=== PATIENT | female | born 1980 | race Hispanic/Latino ===

== ENCOUNTER 2021-04-02 11:21 | Emergency (ER) | payer OTHER, SELFPAY ==
--- NOTE | ~2021-04-02 | XR_ITS ---
EXAMINATION: XR wrist RT min 3V DATE: 04/02/2021 11:44 INDICATION: Right wrist pain. TECHNIQUE: 4 views of right wrist were obtained. COMPARISON: None. FINDINGS: Bone alignment is normal. No fracture. Joint spaces are normal. IMPRESSION: 1. Normal right wrist. Reviewed, dictated and finalized at location B. IMPRESSION: 1. Normal right wrist.
[2021-04-02 11:31] VITALS: BP 141/102; PULSE 84; RESP 16; TEMP 37.2; O2SAT 100
--- NOTE | 2021-04-02 11:34 | ED.GENADULT ---
HPI - General Adult General Chief complaint: Extremity Injury, Upper Stated complaint: right forearm pain Source: patient Mode of arrival: ambulatory Limitations: no limitations History of Present Illness HPI narrative: 40 y/o female. PMH includes: None pertinent has been reported. Presents to [facility] today with acute complaints of RT wrist pain, worsening in the past 1 week. She tells me that she had been putting lids on jars at work, and had hit her wrist on the jar to close the lid a few times prior to manifestation onset. She complains of worsening pain to area, unrelieved with OTC remedies. No additional injury or trauma has been relayed. No loss of upper extremity sensation or control. No open wounds. She is RT hand dominant. She is without additional acute complaints of illness upon exam. Related Data Home Medications Medication Instructions Recorded Confirmed No Home Medications 11/30/19 11/30/19 Allergies Allergy/AdvReac Type Severity Reaction Status Date / Time No Known Allergies Allergy Verified 04/02/21 11:35 Review of Systems Review of Systems: Narrative: CONSTITUTIONAL: Denies fever, chills, sweats. EYES: Denies visual changes, redness, discharge. ENT: Denies rhinorrhea, congestion, sore throat, otalgia. CARDIOVASCULAR: Denies chest pain, palpitations, edema. RESPIRATORY: Denies dyspnea, wheezing, cough GASTROINTESTINAL: Denies abdominal pain, nausea, vomiting, diarrhea. GENITOURINARY: Denies dysuria, hematuria, abnormal discharge SKIN: Denies rash or itching. MUSCULOSKELETAL: RT wrist pain. NEUROLOGIC: Denies numbness, or focal weakness. PSYCHIATRIC: Denies anxiety or depression. All systems reviewed & are unremarkable except as noted in HPI and below PMFSH Past Medical History Medical History (Updated 04/02/21 @ 11:56 by RANULFO Sin) Healthy female adult Surgical History Surgical History Hx of appendectomy Hx of section Hx of tubal ligation Social History Social History Smoking status: Never smoker Gender identity (if verbalized by the patient): Female Exam Narrative: Exam Narrative: GENERAL: This is a well-nourished, well-developed patient, in no apparent distress. HEAD: normocephalic, atraumatic. EYES: PERRL. Sclera clear/white. Vision is grossly intact. EARS: External ears normal, auditory canals clear and without drainage, TMs normal without perforation. Hearing grossly intact. NOSE: External nose normal with no obvious nasal discharge, nares without redness, no rhinorrhea. THROAT: Mucous membranes moist, posterior pharynx clear. NECK: Neck supple, non-tender without lymphadenopathy, masses or thyromegaly. CARDIOVASCULAR: Regular rate and rhythm without murmurs, gallops, or rubs. Pulses strong RUE. RESPIRATORY: Clear to auscultation. Breath sounds equal bilaterally. No wheezes, rales, or rhonchi. GASTROINTESTINAL: Abdomen soft, non-tender, nondistended. Bowel sounds are active. No hepato-splenomegaly, or palpable masses. No guarding. SKIN: warm, intact with no suspicious lesions or rash, good texture and turgor. No obvious ecchymosis RT wrist. NEURO: awake, alert, and oriented to person, place and time. There were no obvious focal neurologic abnormalities. Sensation remains preserved RUE. EXTREMITIES: RT wrist ROM remains preserved. There is point tenderness and mild soft tissue swelling overlying RT anterior ulna. No obvious deformity. Adult Live In Caregiver are strong. Remainder of musculoskeletal exam is negative. Course Vital Signs Vital signs: Vital Signs Temperature 37.2 C 04/02/21 11:31 Pulse Rate 84 04/02/21 11:31 Respiratory Rate 16 04/02/21 11:31 Blood Pressure 141/102 H 04/02/21 11:31 Pulse Oximetry 100 04/02/21 11:31 Temperature 37.2 C 04/02/21 11:31 Pulse Rate 84 04/02/21 11:31 Respiratory Rate 16 04/02/21
== END 2021-04-02 11:58 | disposition home or self-care (01) ==
PROVIDERS: Emergency Provider Nurse Practitioner Adult Health; PCP Family Medicine
DX: S63.501A Unspecified sprain of right wrist, initial encounter (principal); S66.911A Strain of unspecified muscle, fascia and tendon at wrist and hand level, right hand, initial encounter; X50.3XXA Overexertion from repetitive movements, initial encounter; Y99.0 Civilian activity done for income or pay
CPT/HCPCS: 73110; 99213; G0463

== ENCOUNTER 2024-04-25 10:06 | Emergency (ER) | payer OTHER, SELFPAY ==
[2024-04-25 10:15] VITALS: BP 155/103; PULSE 86; RESP 16; TEMP 37; O2SAT 99
--- NOTE | 2024-04-25 10:20 | ED.EYEPROB ---
HPI - Eye Problem General Chief complaint: Eye Problems Stated complaint: right upper eyelid issue Time Seen by Provider: 04/25/24 10:20 Source: patient Mode of arrival: ambulatory Limitations: no limitations History of Present Illness HPI Narrative: 43-year-old male presented for complaint of right upper eyelid swelling and redness worsening over the past few days. She endorses a history of styes but states they have usually been on the lower lip. Also reports a history painful red eye full which she had to see an box blank machine feeder and is concerned for that to occur again. She denies drainage from the eye, vision changes, photophobia, injury or foreign body. does not wear contact lenses. chief complaint: eye pain Related Data Home Medications Medication Instructions Recorded Confirmed No Home Medications 11/30/19 04/02/21 Allergies Allergy/AdvReac Type Severity Reaction Status Date / Time No Known Allergies Allergy Verified 04/02/21 11:35 Review of Systems Review of Systems: CONSTITUTIONAL: Denies body aches, fever, chills EYES:Endorses swelling, redness and pain to right upper eye; Denies visual changes, FB sensation, photophobia ENT: Denies rhinorrhea, congestion, sore throat, or otalgia. CARDIOVASCULAR: Denies chest pain, palpitations RESPIRATORY: Denies cough or dyspnea. SKIN: Denies rash, itching, or wounds. NEUROLOGIC: Denies headache All systems reviewed & are unremarkable except as noted in HPI and below PMFSH Past Medical History Medical History Healthy female adult Surgical History Surgical History Hx of appendectomy Hx of section Hx of tubal ligation Social History Social History Smoking status: Never smoker Gender identity (if verbalized by the patient): Female Comments At time of signature, I have reviewed and agree with nursing past medical, surgical, social and family history unless otherwise noted. Please see nursing chart for further information. There is no relevant family history pertinent to the presenting complaint Exam Narrative: GENERAL: Well-appearing EYES: right upper eye lid swelling and redness c/w stye. No conjunctival injection, no drainage. EOMI. Lid eversion shows no foreign body ENT: Mucous membranes pink and moist. No rhinorrhea. CHEST: respirations even and unlabored ABDOMEN: Soft, nondistended SKIN: Warm, dry, no rash. Normal skin turgor. NEURO: No focal deficits. Alert and oriented x3 PSYCH: Normal affect. Course Course Emergency Course: Patient is aware of diagnosis, understands and agrees to treatment plan. Anticipatory guidance given. Patient agrees to follow-up as directed and is aware of reasons to seek care at the emergency department. Portions of this record may have been created with voice recognition software Level of Care: Express Care Visit Vital Signs Vital signs: Vital Signs Temperature 98.6 F 04/25/24 10:15 Pulse Rate 86 04/25/24 10:15 Respiratory Rate 16 04/25/24 10:15 Blood Pressure 155/103 H 04/25/24 10:15 Pulse Oximetry 99 04/25/24 10:15 Oxygen Delivery Room Air 04/25/24 10:15 Temperature 98.6 F 04/25/24 10:15 Pulse Rate 86 04/25/24 10:15 Respiratory Rate 16 04/25/24 10:15 Blood Pressure 155/103 H 04/25/24 10:15 Pulse Oximetry 99 04/25/24 10:15 Oxygen Delivery Room Air 04/25/24 10:15 MDM - Eye Problem MDM Narrative Medical decision making narrative: Discussed physical exam findings c/w stye. Advised supportive measures and signs/symptoms to go to the ER. Pt is appropriate for outpt treatment and f/u. Differential Diagnosis Differential diagnosis: Likely corneal abrasion, conjunctivitis, acute iritis and other Discharge Plan Discharge Clinical Impression: External song
== END 2024-04-25 10:35 | disposition home or self-care (01) ==
PROVIDERS: Emergency Provider Nurse Practitioner Family; PCP Family Medicine
DX: H00.011 Hordeolum externum right upper eyelid (principal)
CPT/HCPCS: 99211; G0463